=== PATIENT | male | born 1960 | race Caucasian/White ===

== ENCOUNTER 2017-10-17 04:08 | Emergency (ER) | payer MEDICAID, SELFPAY ==
[2017-10-17 04:08] VITALS: BP 165/80; PULSE 130; RESP 40; O2SAT 97; BMI 23.7
[2017-10-17 04:22] LABS: Basophils # 0.1 K/mm3 (0-0.2); Basophils % 0.7 % (0.1-2.0); Eosinophils # 0.9 K/mm3 (0.0-0.4); Eosinophils % 7.1 % (0.1-12.0); Hematocrit 50.9 % (42.0-52.0); Hemoglobin 17.2 g/dL (14.1-18.0); Lymphocytes # 4.5 K/mm3 (0.7-4.5); Lymphocytes % 35.5 K/mm3 (10-50); Mean Corpuscular HGB Conc 33.9 g/dL (31.8-35.4); Mean Corpuscular Hemoglobin 33.2 pg (27.0-31.2); Mean Corpuscular Volume 97.9 fl (80-94); Mean Platelet Volume 8.6 fl (7.4-10.4); Monocytes # 0.7 K/mm3 (0.1-1.0); Monocytes % 5.2 % (1.7-9.3); Neutrophils # 6.5 K/mm3 (1.8-7.8); Neutrophils % 51.4 % (37.0-80.0); Platelet Count 292 K/mm3 (142-424); White Blood Count 12.7 K/mm3 (4.8-10.8)
--- NOTE | 2017-10-17 04:24 | XR_ITS ---
XR chest portable HISTORY: ITS.REASON: shortness of breath and chest pain ORDERING PHYSICIAN: Peter Clark MD PATIENT AGE: 56 years COMPARISON: None available FINDINGS: The cardiomediastinal silhouette and pulmonary vascularity are within normal limits. The lungs are clear without infiltrates, suspicious nodules, or pleural effusions. Calcified granuloma left lung base No acute bony abnormalities. IMPRESSION: No acute finding, old granulomatous disease
[2017-10-17 04:44] LABS: Alanine Aminotransferase 56 U/L (12-78); Albumin Level 4.2 gm/dL (3.4-5.0); Albumin/Globulin Ratio 1.2 (1.1-1.8); Alkaline Phosphatase 106 U/L (46-116); Anion Gap 17.9 mEq/L (5-15); Aspartate Amino Transferase 37 U/L (15-37); Bilirubin,Total 0.5 mg/dL (0.2-1.0); Blood Urea Nitrogen 14 mg/dL (7-18); Calcium 9.6 mg/dL (8.5-10.1); Carbon Dioxide 28 mmol/L (21.0-32.0); Chloride 103 mmol/L (98-107); Creatinine Clearance Estimated 94 mL/min (0-300); Creatinine,Serum 1.05 mg/dL (0.70-1.30); Estimated Glomerular Filt Rate 73 ml/min (>60); GFR (African American) 89 ML/MIN (>60); Globulin 3.4 gm/dl (1.3-3.2); Glucose 117 mg/dL (74-106); Potassium 3.9 mmoL/L (3.5-5.1); Sodium 145 mmol/L (136-145); Total Protein,Serum 7.6 gm/dL (6.4-8.2)
[2017-10-17 04:48] VITALS: BP 147/90; PULSE 89; RESP 18; TEMP 36.6; O2SAT 99
[2017-10-17 04:50] LABS: CKMB Relative Index 0.4 U/L (0-4.0); Creatine Kinase 160 U/L (39-308); Creatine Kinase MB 0.7 mg/ml (0.0-3.6); Troponin I < 0.02 ng/ml (0.00-0.06)
[2017-10-17 04:56] LABS: Ethyl Alcohol 0 mg/dL (0-99)
[2017-10-17 05:14] LABS: Microscopic, Urine URINE MICROSCOPIC (MICROSCOPIC)
[2017-10-17 05:15] LABS: Appearance,Urine CLEAR (Clear); Bilirubin,Urine Negative (Negative); Blood, Urine Negative (Negative); Color,Urine YELLOW (Yellow); Glucose,Urine (UA) Negative (Negative); Ketones,Urine Negative (Negative); Leukocyte Esterase,Urine Negative (Negative); Nitrate,Urine Negative (Negative); PH,Urine 6.5 (5.0-8.5); Protein,Urine Negative (Negative); Specific Gravity, Urine <= 1.005 (1.005-1.030); Urobilinogen,Urine 0.2 EU/dl (0.2)
[2017-10-17 05:24] LABS: Amphetamine/Metha Screen,Urine Negative ng/mL (<1000); Barbiturates Screen,Urine Negative ng/mL (<200); Benzodiazepines Screen,Urine Negative ng/mL (200); Cannabinoid Screen,Urine Negative ng/mL (<50); Cocaine Screen,Urine Negative ng/g (<300); Methadone Screen,Urine Negative ng/mL (<300); Opiate Screen,Urine Negative ng/mL (<300); Phencyclidine Screen,Urine Negative ng/mL (<25)
[2017-10-17 05:28] LABS: WBC,Urine Occasional #/hpf (0-3)
[2017-10-17 05:29] LABS: Bacteria,Urine Trace /lpf
--- NOTE | 2017-10-17 06:18 | HMH.EDSEIZ ---
ED Disposition Clinical Impression: Generalized seizure Disposition: Home, Self-Care Condition on Discharge: Good Instructions: DI for Seizure Disorder -- Adult Additional Instructions: call your pcp for follow up - Critical Care Critical Care Time: No Attestation: On 10/17/17, the high probability of a clinically significant, sudden or life threatening deterioration of the following system(s) required my full and direct attention, intervention and personal management. The time I documented below is in addition to time spent performing reported procedures but includes the following listed in this critical care notation. Medical Decision Making - Medical Records Medical records reviewed: Yes: I reviewed the patient's medical records. Vital Signs: 10/17/17 04:08 10/17/17 04:48 Temperature 97.9 F Temperature Source Oral Pulse Rate [Left Brachial] 130 H 89 Respiratory Rate 40 H 18 Blood Pressure [Right Arm] 165/80 147/90 Blood Pressure Mean [Right Arm] 108 109 Blood Pressure Source [Right Arm] Automatic Cuff Blood Pressure Position [Right Arm] Sitting 02 Sat by Pulse Oximetry 97 99 Oxygen Delivery Method Room Air Room Air - Lab Data Lab results reviewed: Yes: I reviewed the patient's lab results. Lab Results 10/17/17 04:20: WBC 12.7 H, RBC 5.20, Hgb 17.2, Hct 50.9, MCV 97.9 H, MCH 33.2 H, MCHC 33.9, RDW 12.0, Plt Count 292, MPV 8.6, Neut % (Auto) 51.4, Lymph % (Auto) 35.5, [place] % (Auto) 5.2, Eos % (Auto) 7.1, Baso % (Auto) 0.7, Neut # (Auto) 6.5, Lymph # (Auto) 4.5, [place] # (Auto) 0.7, Eos # (Auto) 0.9 H, Baso # (Auto) 0.1 10/17/17 04:20: Sodium 145, Potassium 3.9, Chloride 103, Carbon Dioxide 28, Anion Gap 17.9 H, BUN 14, Creatinine 1.05, Estimated Creat Clear 94, Estimated GFR 73, Est GFR ( Amer) 89, Glucose 117 H, Calcium 9.6, Total Bilirubin 0.5, AST 37, ALT 56, Alkaline Phosphatase 106, Total Protein 7.6, Albumin 4.2, Globulin 3.4 H, Albumin/Globulin Ratio 1.2, Plasma/Serum Alcohol 0 10/17/17 04:20: Total Creatine Kinase 160, CK-MB (CK-2) 0.7, CK-MB (CK-2) Rel Index 0.4, Troponin I < 0.02 10/17/17 04:47: Urine Color Yellow, Urine Appearance Clear, Urine pH 6.5, Ur Specific [place] <= 1.005, Urine Protein Negative, Urine Glucose (UA) Negative, Urine Ketones Negative, Urine Blood Negative, Urine Nitrate Negative, Urine Bilirubin Negative, Urine Urobilinogen 0.2, Ur Leukocyte Esterase Negative, Urine WBC Occasional, Urine Bacteria Trace 10/17/17 04:47: Urine Opiates Screen Negative, Ur Barbituates Screen Negative, Ur Phencyclidine Scrn Negative, Ur Amphetamines Screen Negative, U Methamphetamines Scrn Negative, U Benzodiazepines Scrn Negative, Urine Cocaine Screen Negative, U Marijuana (THC) Screen Negative Result diagrams: 10/17/17 04:20 10/17/17 04:20 Orders (Tests/Meds): ED MEDICATIONS Generic Name Dose Route Start Last Admin Trade Name Freq PRN Reason Stop Dose Admin Sodium Chloride 2 ml 10/17/17 06:02 Saline Flush 10ml Syringe IV 11/16/17 06:01 NEEDED PRN to Dilute Lorazepam inj Discontinued Medications Generic Name Dose Route Start Last Admin Trade Name Freq PRN Reason Stop Dose Admin Lorazepam 1 mg 10/17/17 04:16 10/17/17 04:20 Ativan 2mg/Ml Vial IV 10/17/17 04:17 1 mg ONCE ONE Administration Lorazepam 0.5 mg 10/17/17 06:02 Ativan 2mg/Ml Vial IV 10/17/17 06:03 ONCE ONE ORDERS Category Date Time Status EKG Request [ECG Request by /Enoch] Stat Y 10/17/17 04:23 Ordered - Radiology Data #1 Image(s): Chest Image Reviewed: Yes I reviewed the patient's radiology image Preliminary Findings: Normal/NAD - ECG Data Tracing #1 I reviewed this ECG and interpreted as documented below: Normal Sinus Rhythm: Yes Ischemic changes: non-specific ST-T wave changes - Bhavik Inquiry Pt receiving controlled substance: No Seizures HPI - General Chief Complaint: Seizure Stated Complaint: seizure Time See
[2017-10-17 06:21] VITALS: BP 133/83; PULSE 81; RESP 18; O2SAT 96
--- NOTE | 2017-10-17 06:21 | ED_ITS ---
ED Disposition Clinical Impression: Generalized seizure Disposition: Home, Self-Care Condition on Discharge: Good Instructions: DI for Seizure Disorder -- Adult Additional Instructions: call your pcp for follow up - Critical Care Critical Care Time: No Attestation: On 10/17/17, the high probability of a clinically significant, sudden or life threatening deterioration of the following system(s) required my full and direct attention, intervention and personal management. The time I documented below is in addition to time spent performing reported procedures but includes the following listed in this critical care notation. Medical Decision Making - Medical Records Medical records reviewed: Yes: I reviewed the patient's medical records. Vital Signs: 10/17/17 04:08 10/17/17 04:48 Temperature 97.9 F Temperature Source Oral Pulse Rate [Left Brachial] 130 H 89 Respiratory Rate 40 H 18 Blood Pressure [Right Arm] 165/80 147/90 Blood Pressure Mean [Right Arm] 108 109 Blood Pressure Source [Right Arm] Automatic Cuff Blood Pressure Position [Right Arm] Sitting 02 Sat by Pulse Oximetry 97 99 Oxygen Delivery Method Room Air Room Air - Lab Data Lab results reviewed: Yes: I reviewed the patient's lab results. Lab Results 10/17/17 04:20: WBC 12.7 H, RBC 5.20, Hgb 17.2, Hct 50.9, MCV 97.9 H, MCH 33.2 H , MCHC 33.9, RDW 12.0, Plt Count 292, MPV 8.6, Neut % (Auto) 51.4, Lymph % (Auto ) 35.5, [place] % (Auto) 5.2, Eos % (Auto) 7.1, Baso % (Auto) 0.7, Neut # (Auto) 6.5, Lymph # (Auto) 4.5, [place] # (Auto) 0.7, Eos # (Auto) 0.9 H, Baso # (Auto) 0.1 10/17/17 04:20: Sodium 145, Potassium 3.9, Chloride 103, Carbon Dioxide 28, Anion Gap 17.9 H, BUN 14, Creatinine 1.05, Estimated Creat Clear 94, Estimated GFR 73, Est GFR ( Amer) 89, Glucose 117 H, Calcium 9.6, Total Bilirubin 0.5, AST 37, ALT 56, Alkaline Phosphatase 106, Total Protein 7.6, Albumin 4.2, Globulin 3.4 H, Albumin/Globulin Ratio 1.2, Plasma/Serum Alcohol 0 10/17/17 04:20: Total Creatine Kinase 160, CK-MB (CK-2) 0.7, CK-MB (CK-2) Rel Index 0.4, Troponin I < 0.02 10/17/17 04:47: Urine Color Yellow, Urine Appearance Clear, Urine pH 6.5, Ur Specific [place] <= 1.005, Urine Protein Negative, Urine Glucose (UA) Negative, Urine Ketones Negative, Urine Blood Negative, Urine Nitrate Negative, Urine Bilirubin Negative, Urine Urobilinogen 0.2, Ur Leukocyte Esterase Negative, Urine WBC Occasional, Urine Bacteria Trace 10/17/17 04:47: Urine Opiates Screen Negative, Ur Barbituates Screen Negative, Ur Phencyclidine Scrn Negative, Ur Amphetamines Screen Negative, U Methamphetamines Scrn Negative, U Benzodiazepines Scrn Negative, Urine Cocaine Screen Negative, U Marijuana (THC) Screen Negative Result diagrams: 10/17/17 04:20 10/17/17 04:20 Orders (Tests/Meds): ED MEDICATIONS Generic Name Dose Route Start Last Admin Trade Name Freq PRN Reason Stop Dose Admin Sodium Chloride 2 ml 10/17/17 06:02 Saline Flush 10ml Syringe IV 11/16/17 06:01 NEEDED PRN to Dilute Lorazepam inj Discontinued Medications Generic Name Dose Route Start Last Admin Trade Name Freq PRN Reason Stop Dose Admin Lorazepam 1 mg 10/17/17 04:16 10/17/17 04:20 Ativan 2mg/Ml Vial IV 10/17/17 04:17 1 mg ONCE ONE Administration Lorazepam 0.5 mg 10/17/17 06:02 Ativan 2mg/Ml Vial IV 10/17/17 06:
[2017-10-17 06:41] VITALS: BP 133/83; PULSE 81; RESP 18; TEMP 36.7; O2SAT 96
== END 2017-10-17 06:41 | disposition home or self-care (01) ==
PROVIDERS: Emergency Provider Emergency Medicine
DX: R56.9 Unspecified convulsions (principal); Z88.0 Allergy status to penicillin; Z88.6 Allergy status to analgesic agent
CPT/HCPCS: 71045; 80053; 80305; 81001; 82550; 82553; 84484; 85025; 93005; 93041; 96374; 96376; 99283

== ENCOUNTER 2017-11-12 10:14 | Emergency (ER) | payer MEDICAID, SELFPAY ==
[2017-11-12 10:15] VITALS: BP 126/88; PULSE 89; RESP 18; TEMP 36.6; O2SAT 98; BMI 17.1
--- NOTE | 2017-11-12 10:28 | CT_ITS ---
CT head/brain wo con HISTORY: ITS.REASON: SEIZURES ORDERING PHYSICIAN: Graham Castaneda MD PATIENT AGE: 56 years COMPARISON: None TECHNIQUE: Study was performed by helical technique is a patient was unable to lie still. FINDINGS: There is mild generalized motion artifact. No midline shift or mass effect evident. No acute intracranial hemorrhage. There is partial opacification of the ethmoid sinuses. IMPRESSION: Motion artifact, no definite acute intracranial findings
--- NOTE | 2017-11-12 10:51 | HMH.EDGENADL ---
ED Disposition Clinical Impression: Central nervous system disorder Disposition: Home, Self-Care Condition on Discharge: Good Additional Instructions: Follow with your neurologist, Dr. Cazares, as soon as possible, for evaluation and refills on your current medications. Referrals: Mehdi Arellano [Referring] - Time of Disposition: 10:52 - Critical Care Critical Care Time: No Attestation: On 11/12/17, the high probability of a clinically significant, sudden or life threatening deterioration of the following system(s) required my full and direct attention, intervention and personal management. The time I documented below is in addition to time spent performing reported procedures but includes the following listed in this critical care notation. Medical Decision Making - Medical Records Medical records reviewed: Yes: I reviewed the patient's medical records. Vital Signs: 11/12/17 10:15 11/12/17 11:04 Temperature 97.8 F 97.8 F Temperature Source Oral Oral Pulse Rate 80 Pulse Rate [Right Brachial] 89 Respiratory Rate 18 18 Blood Pressure 121/80 Blood Pressure [Right Arm] 126/88 Blood Pressure Mean [Right Arm] 100 Blood Pressure Source Automatic Cuff Blood Pressure Source [Right Arm] Automatic Cuff Blood Pressure Position Sitting Blood Pressure Position [Right Arm] Supine 02 Sat by Pulse Oximetry 98 Oxygen Delivery Method Room Air Room Air Orders (Tests/Meds): ED MEDICATIONS Discontinued Medications Generic Name Dose Route Start Last Admin Trade Name Freq PRN Reason Stop Dose Admin Lorazepam 2 mg 11/12/17 10:51 Ativan 1mg Tablet PO 11/12/17 10:52 ONCE ONE - CT Data CT Scan: Head (Without IV contrast) Time Received: 10:[address] Reviewed: Yes: I have reviewed the patient's CT results Preliminary Findings: Normal/NAD - Bhavik Inquiry Pt receiving controlled substance: No - Reevaluation(s) Time: 10:45 Reevaluation #1: Upon reevaluation patient appears medically stable, no acute distress. Advised patient that I will be unable to dispense any controlled substances to him and he will need to see his neurologist for this specific purpose. General Adult HPI - General Chief complaint: Seizure Stated complaint: thinks he had a seizure Mode of Arrival: EMS Limitations: No Limitations Description of Symptoms (Recalled from ER Triage Doc. 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 Advised that he was diagnosed with a [employer] disorder , and he takes Klonopin prescribed by Dr. Mcdonough for such disorder. He underwent extensive testing, which all returned negative. Today's episode was manifested by fasciculations of his upper and lower extremities, patient denies passing out, biting his tongue, being incontinent, or postictally confused. Onset (ago): minute(s) (30) Severity: mild - Related Data Home Medications Medication Instructions Recorded Confirmed clonazePAM [Klonopin 0.5mg tablet] 0.5 mg PO DAILY 10/17/17 11/12/17 Allergies Allergy/AdvReac Type Severity Reaction Status Date / Time tetanus and diphtheria AdvReac Verified 11/12/17 10:20 toxoids [facility] History I have reviewed the patient's past medical history: Yes - Social History Educational Level: Completed High School Smoking Status: Current every day smoker Tobacco Type: cigarettes Alcohol Intake: never Alcohol Intake Frequency:: a few times a week Substance Use Type: prescription drug Last Used Substance: hours (ago) - Psychiatric History Expresses thoughts of harming self/others: None Suicide Plan Description: No Plan ROS Obtained: Yes All systems reviewed & no additional complaints, Yes Systems reviewed as appropriate & no additional complaints - Neurologic
[2017-11-12 11:04] VITALS: BP 121/80; PULSE 80; RESP 18; TEMP 36.6; O2SAT 99
== END 2017-11-12 11:03 | disposition home or self-care (01) ==
PROVIDERS: Emergency Provider Emergency Medicine
DX: G96.9 Disorder of central nervous system, unspecified (principal); R56.9 Unspecified convulsions; F17.210 Nicotine dependence, cigarettes, uncomplicated
CPT/HCPCS: 70450; 99282

== ENCOUNTER → 2018-03-11 10:16 | Outpatient (CLI) | payer MEDICAID, SELFPAY ==
[2018-03-11 12:13] LABS: T4 (Thyroxine) 12.5 ug/dl (4.7-13.3); Thyroid Stimulating Hormone 1.35 uIU/ml (0.358-3.740)
[2018-03-12 07:14] LABS: Ceruloplasmin 27.3 mg/dL (16.0-31.0)
[2018-03-12 09:03] LABS: Antistreptolysin O Ab 162.9 IU/mL (0.0-200.0); Triiodothyronine (T3) Total 148 ng/dL (71-180)
[2018-03-12 13:12] LABS: Anti-Jo-1 <0.2 AI (0.0-0.9); Anti-Smith Antibody <0.2 AI (0.0-0.9); Antichromatin Antibodies <0.2 AI (0.0-0.9); Antiscleroderma-70 Antibodies <0.2 AI (0.0-0.9); RNP Antibodies <0.2 AI (0.0-0.9); Sjogren's Anti-SS-A <0.2 AI (0.0-0.9); Sjogren's Anti-SS-B <0.2 AI (0.0-0.9)
[2018-03-13 12:24] LABS: Anti-Centromere B Antibodies <0.2 AI (0.0-0.9); Anti-DNA (DS) Ab Qn 2 IU/mL (0-9); Arsenic, Blood 4 ug/L (2-23); Lead, Blood 3 ug/dL (0-19); Mercury, Blood None Detected ug/L (0.0-14.9)
[2018-03-15 11:40] LABS: Vitamin B1 184.3 nmol/L (66.5-200.0)
== END ==
PROVIDERS: PCP Emergency Medicine; Visit Provider Specialist
DX: G40.909 Epilepsy, unspecified, not intractable, without status epilepticus (principal); G25.9 Extrapyramidal and movement disorder, unspecified; R56.9 Unspecified convulsions; F44.4 Conversion disorder with motor symptom or deficit
CPT/HCPCS: 36415; 82175; 82390; 83655; 83825; 84425; 84436; 84443; 84480; 86060; 86225; 86235

== ENCOUNTER → 2018-06-18 07:57 | Outpatient (CLI) | payer MEDICAID, SELFPAY ==
--- NOTE | 2018-06-18 07:58 | CT_ITS ---
EXAM: CT LUNG LOW DOSE WO CONTRAST COMPARISON: Portable CXR 10/17/2017 HISTORY: 1 pack per day for 46 years. = 46 pack-year . Currently smoking FINDINGS: No suspicious lung nodules.: Indeterminate or Suspicious Lung Nodules(Category3-4B): None Indeterminate/Non-actionable Nodules(Category2): None Benign nodules(Category1). Large 2.2 cm densely calcified peripheral nodule which extends to the pleura is seen at the posterior RLL axial slice 66. Sagittal 83.. This dense calcification most probable with a long-standing benign granuloma. Similar stable feature was seen on the October 2017 CXR. LUNG PARENCHYMA . The lungs appear clear with no active disease. Minimal linear scarring and fibrotic changes seen towards the posterior medial lung bases, medial posterior sulcus region bilaterally as well as anteriorly at the lingula. Minimal linear scarring at the medial aspect of the fissures bilaterally. . Only scant centrilobular emphysematous changes Airways disease: Borderline to perhaps scant airway thickening most suspect centrally and towards lower lobes... . Fibrosis: . Only scant if any fibrotic changes towards the posterior lower lobes. Negligible. Equivocal. No significant interstitial fibrosis overall Lymph Nodes: Mediastinum. 16 times nearly 10 mm benign-appearing node precarinal region. Other small less than 1 cm nodes at right paratracheal and AP window region. There are several dense calcified nodes at left hayley. The largest node measuring up to 13 mm hypodense 10 mm.. There is also note posterior to the base of the left hayley. These reflect granulomatous disease IMPRESSION: 1. 2.2 cm large benign calcified granuloma at the periphery of the left lower lobe. = Lung RADS Category: 1. 2. Associated benign calcified nodes left hayley reflecting granulomatous disease as well 3.. No suspicious lung lesions. 4. Minimal linear scarring towards lung bases. . Borderline out airway thickening Only scant early if any emphysematous changes RECOMMENDATIONS: 12 months LDCT follow-up ======== TECHNIQUE: The exam was performed on a GE Light Speed [address] scanner using 3.0 mGy CTDI. A low dose helical CT CHEST was performed on a multi-detector scanner. All CT scans at this facility use one or more dose reduction techniques, viz.: automated exposure control, ma/kV adjustment per patient size (including targeted exams where dose is matched to indication, i.e. head) or iterative reconstruction technique. The LDCT was performed in a facility that meets the criteria for the screening program. Data regarding this exam was submitted to ACR which is an approved registry. The order for this exam indicates that it came as a result of a lung cancer screening counseling shard decision-making visit that included all the elements required of such a visit including smoking cessation. The radiologist interpreting this exam meets the [facility] criteria for the LDCT lung cancer screening program. The exam is reported using the Lung-RADS classification scale and reported to the ACR registry. NOTE: This study was performed for the specific purposes of lung cancer screening and is not an alternative to diagnostic chest CT. RADIATION DOSE: CTDI vol(CT dose Index-volume) = 2.9 mGy DLP (Dose Length Product) = 126.11 mGy-cm
[2018-06-18 08:43] LABS: Basophils % 0.4 % (0.1-2.0); Eosinophils # 0.4 K/mm3 (0.0-0.4); Eosinophils % 4.8 % (0.1-12.0); Hematocrit 50.7 % (42.0-52.0); Hemoglobin 16.6 g/dL (14.1-18.0); Mean Corpuscular HGB Conc 32.7 g/dL (31.8-35.4); Mean Corpuscular Hemoglobin 31.7 pg (27.0-31.2); Mean Corpuscular Volume 96.8 fl (80-94); Mean Platelet Volume 7.9 fl (7.4-10.4); Monocytes # 0.3 K/mm3 (0.1-1.0); Monocytes % 3.6 % (1.7-9.3); Neutrophils # 5.1 K/mm3 (1.8-7.8); Neutrophils % 65.2 % (37.0-80.0); Platelet Count 287 K/mm3 (142-424); Red Blood Count 5.23 M/mm3 (4.60-6.20); Red Cell Distribution Width 12.5 % (11.5-17.5); White Blood Count 7.8 K/mm3 (4.8-10.8)
== END ==
PROVIDERS: PCP Emergency Medicine; Visit Provider Internal Medicine Medical Oncology
DX: Z12.2 Encounter for screening for malignant neoplasm of respiratory organs (principal)
CPT/HCPCS: 36415; 85025

== ENCOUNTER → 2018-06-18 08:22 | Outpatient (CLI) | payer MEDICAID, SELFPAY | PROVIDERS: PCP Emergency Medicine; Visit Provider Internal Medicine Medical Oncology | DX: F17.200 Nicotine dependence, unspecified, uncomplicated (principal) | CPT/HCPCS: 36415; 85025 ==

== ENCOUNTER → 2019-05-06 09:46 | Outpatient (CLI) | payer MEDICAID, SELFPAY ==
[2019-05-06 10:19] LABS: Basophils % 0.5 % (0.1-2.0); Eosinophils # 0.4 K/mm3 (0.0-0.4); Eosinophils % 4.8 % (0.1-12.0); Hematocrit 50.1 % (42.0-52.0); Hemoglobin 17.1 g/dL (14.1-18.0); Lymphocytes # 2.2 K/mm3 (0.7-4.5); Lymphocytes % 29.9 % (10-50); Mean Corpuscular HGB Conc 34.1 g/dL (31.8-35.4); Mean Corpuscular Hemoglobin 33.4 pg (27.0-31.2); Mean Platelet Volume 7.9 fl (7.4-10.4); Monocytes # 0.3 K/mm3 (0.1-1.0); Monocytes % 4.6 % (1.7-9.3); Neutrophils # 4.4 K/mm3 (1.8-7.8); Neutrophils % 60.1 % (37.0-80.0); Platelet Count 294 K/mm3 (142-424); Red Blood Count 5.11 M/mm3 (4.60-6.20); Red Cell Distribution Width 12.9 % (11.5-17.5); White Blood Count 7.3 K/mm3 (4.8-10.8)
[2019-05-06 10:37] LABS: Hemoglobin A1C 5.6 % (0.0-7.0)
[2019-05-06 10:55] LABS: Alanine Aminotransferase 29 U/L (12-78); Albumin Level 4.2 gm/dL (3.4-5.0); Albumin/Globulin Ratio 1.2 (1.1-1.8); Alkaline Phosphatase 93 U/L (46-116); Anion Gap 13.5 mEq/L (5-15); Aspartate Amino Transferase 21 U/L (15-37); Bilirubin,Total 0.7 mg/dL (0.2-1.0); Blood Urea Nitrogen 9 mg/dL (7-18); Calcium 9.6 mg/dL (8.5-10.1); Carbon Dioxide 27 mmol/L (21.0-32.0); Chloride 100 mmol/L (98-107); Chol/HDL Ratio 3.5 (1-3.5); Cholesterol 202 mg/dL (140-200); Creatinine,Serum 0.96 mg/dL (0.70-1.30); Estimated Glomerular Filt Rate 81 ml/min (>60); GFR (African American) 98 ML/MIN (>60); Globulin 3.4 gm/dl (1.3-3.2); Glucose 113 mg/dL (74-106); HDL Cholesterol 57 mg/dL (27-67); LDL Cholesterol 129 mg/dL (0-130); Potassium 4.5 mmoL/L (3.5-5.1); Sodium 136 mmol/L (136-145); Thyroid Stimulating Hormone 1.32 uIU/ml (0.358-3.740); Total Protein,Serum 7.6 gm/dL (6.4-8.2); Triglycerides 78 mg/dL (30-200); VLDL Cholesterol 16 mg/dL (0-40)
== END ==
PROVIDERS: Visit Provider Psychiatry & Neurology Psychiatry
DX: F33.9 Major depressive disorder, recurrent, unspecified (principal)
CPT/HCPCS: 36415; 80053; 80061; 83036; 84443; 85025

== ENCOUNTER 2019-09-02 11:24 | Observation (INO) ==
--- NOTE | 2019-09-02 11:41 | Emergency Department Note ---
ED Disposition Clinical Impression: Alcohol intoxication Qualifiers: Complication of substance-induced condition: uncomplicated Qualified Code(s): F10.920 - Alcohol use, unspecified with intoxication, uncomplicated Scalp laceration Qualifiers: Encounter type: initial encounter Qualified Code(s): S01.01XA - Laceration without foreign body of scalp, initial encounter Disposition: Admitted as Observation Condition on Discharge: Fair Referrals: Provider,Referral, MD [Primary Care Provider] - - Critical Care Critical Care Time: No Attestation: On , the high probability of a clinically significant, sudden or life threatening deterioration of the following system(s) required my full and direct attention, intervention and personal management. The time I documented below is in addition to time spent performing reported procedures but includes the following listed in this critical care notation. Medical Decision Making - Bhavik Inquiry Pt receiving controlled substance: Yes Bhavik was queried for this patient: No Reason not queried -: Emergent pt cond-no time Risks and benefits of using a controlled substance: were not discussed with pt by me Vital Signs: 09/02/19 11:25 09/02/19 15:00 Temperature 98 F Temperature Source Oral Pulse Rate [Right] 125 H 94 H Respiratory Rate 18 20 Blood Pressure [Right Arm] 153/90 H 134/83 Blood Pressure Mean [Right Arm] 111 100 Blood Pressure Source [Right Arm] Automatic Cuff Blood Pressure Position [Right Arm] Supine 02 Sat by Pulse Oximetry 98 95 Oxygen Delivery Method Room Air Room Air - Lab Data Lab Results 09/02/19 11:30: WBC 9.7, RBC 4.76, Hgb 16.3, Hct 48.3, MCV 101.5 H, MCH 34.2 H, MCHC 33.7, RDW 13.3, Plt Count 316, MPV 8.4, Neut % (Auto) 54.4, Lymph % (Auto) 34.2, [place] % (Auto) 5.8, Eos % (Auto) 4.8, Baso % (Auto) 0.7, Neut # (Auto) 5.3, Lymph # (Auto) 3.3, [place] # (Auto) 0.6, Eos # (Auto) 0.5 H, Baso # (Auto) 0.1 09/02/19 11:30: Sodium 141, Potassium 3.5, Chloride 102, Carbon Dioxide 25, Anion Gap 17.5 H, BUN 11, Creatinine 0.86, Estimated Creat Clear 109, Estimated GFR 92, Est GFR ( Amer) 111, Glucose 102, Calcium 8.7, Total Bilirubin 0.4, AST 32, ALT 44, Alkaline Phosphatase 82, Total Protein 7.8, Albumin 4.2, Globulin 3.6 H, Albumin/Globulin Ratio 1.2, Plasma/Serum Alcohol 356 H* 09/02/19 11:30: PT 12.3 H, INR 1.19 H, APTT 25.7 Result diagrams: 09/02/19 11:30 09/02/19 11:30 Orders (Tests/Meds): ED MEDICATIONS Generic Name Dose Route Start Last Admin Trade Name Freq PRN Reason Stop Dose Admin Multivitamins 10 ml/ Thiamine 1,015 mls @ 150 mls/hr 09/02/19 14:15 09/02/19 15:29 HCl 100 mg/ Magnesium Sulfate IV 09/02/19 21:00 150 mls/hr 2 gm/ Lactated Ringer's .[id number] CATA Administration Sodium Chloride 10 ml 09/02/19 14:46 Sodium Chloride 0.9% 10ml Vial IV 10/02/19 14:45 NEEDED PRN to Dilute Lorazepam inj Discontinued Medications Generic Name Dose Route Start Last Admin Trade Name Freq PRN Reason Stop Dose Admin Diphenhydramine HCl 50 mg 09/02/19 11:35 09/02/19 11:39 Benadryl 50mg/1ml Vial IM 09/02/19 11:36 50 mg ONCE ONE Administration Folic Acid 1 mg 09/02/19 14:07 Folic Acid 1mg Tablet PO 09/02/19 14:08 ONCE ONE Haloperidol Lactate 5 mg 09/02/19 11:35 09/02/19 11:39 Haldol 5mg/Ml Vial IM 09/02/19 11:36 5 mg ONCE ONE Administration Lidocaine/Epinephrine 10 ml 09/02/19 14:30 Lidocaine 2% W/Epi 1:100,000 20ml Vial IJ 09/02/19 14:31 ONCE ONE Lorazepam 2 mg 09/02/19 11:35 09/02/19 11:39 Ativan 2mg/Ml Vial IM 09/02/19 11:36 2 mg ONCE ONE Administration Lorazepam 2 mg 09/02/19 14:46 09/02/19 14:49 Ativan 2mg/Ml Vial IV 09/02/19 14:47 2 mg ONCE ONE Administration ORDERS Category Date Time Status Drug Screen,Urine Stat Lab 09/02/19 11:31 Ordered Urinalysis and Microscopic Stat Lab 09/02/19 11:31 Ordered - Radiology Data #1 Image(s): Chest, Pelvis Image Reviewed: Yes I reviewed the patient's radiology image Pelvis: no fracture or dislocation seen. Chest x-ray: No infiltrate, pneumothorax, pleural effusion, or wide mediastinum. Calcified granuloma left base. - CT Data CT Scan: Head, C-Spine Time Received: 14:[address] Reviewed: Yes: I have viewed the radiologist's interpretation Findings Narrative: c-spine: FINDINGS: Bone density, alignment and vertebral body heights are normal. There is moderate loss of disc space height with small anterior and posterior spurs at C5-6 and C6-7. Posterior elements are intact with posterior benign soft tissue calcifications. There are some areas of mild uncovertebral joint hypertrophy causing only mild foraminal encroachment bilaterally at C5-6 and C6-7. There is no prevertebral soft tissue edema. There is a lucent appearing lesion at the caudal tip of the right mastoid area of the right temporal bone. Maximal diameter is 1.4 centimeters and the length of the lesion is 1.9 centimeters. There appears to be some associated peripheral internal calcific matrix. There is no associated peripheral cortical destruction. IMPRESSION: No acute fracture or subluxation. Multiple levels of degenerative disc disease with bilateral mild spondylosis at C5-6 and C6-7. Lesion as described at the caudal tip of the right mastoid area. The appearance is somewhat nonspecific and differential would include benign etiology such as enchondroma or mucocele. Dictated by: Hermes Caraballo 09/02/2019 14:50 Electronically signed by Hermes Caraballo in [place] 09/02/2019 14:50 head: FINDINGS: No midline shift, mass effect, intracranial hemorrhage, hydrocephalus, or extra-axial fluid collection is evident. There are no areas of abnormal attenuation. Sulci and cortical areas are normal. The calvarium has an unremarkable appearance. The caudal right mastoid lucent lesion has been described on the CT cervical spine report. No sinus air-fluid level. IMPRESSION: No acute intracranial finding Dictated by: Hermes Caraballo 09/02/2019 14:54 Electronically signed by Hermes Caraballo in [place] 09/02/2019 14:54 - Physician Consults Physician Consulted: Dr. Up Time: 15:30 Reason -: Admission Comment/Response: Agrees to admit the patient to the hospital. We discussed the patient's clinical information, including history, exam, laboratory and radiology results and ED course. Per hospital procedure, I will write temporary bridge inpatient orders on the patient. Specific orders requested by the admitting physician: Alcohol withdrawal protocol, IV fluids Medical Decision Narrative: Scalp examined after CT scans/sedation. 2 cm occipital scalp laceration into subcutaneous fat. No bony depression or step-off. No foreign bodies. 3:25 PM: Patient's brother would prefer patient be admitted if possible. General Adult HPI - General Chief complaint: Alcohol Stated complaint: alcohol intox. Time Seen by Provider: 09/02/19 11:30 Mode of Arrival: EMS Limitations: No Limitations Description of Symptoms (Recalled from ER Triage Doc. by RN): Pt fell on the side of the road and hit his head, pt has lac on the back of his head. Pt smells heavily of alcohol. Pt is irrate and combative with staff. - History of Present Illness HPI narrative: Brought in by ambulance. Reportedly found on the side of the street with a cut on his head. Suspected to be intoxicated with alcohol. His brother is here, but cannot provide much additional information. He says that he is on some antipsychotics. He does not know diagnosis or why he is on antipsychotics. He does not think that the patient has any other significant medical issues. He states he sees a doctor for his Tourette's syndrome in [place]. States patient is a daily drinker, approximately 6 beers. The last time he was this drunk was about 3 months ago. He does not think that the patient has significant withdrawal or DTs. - Related Data Home Medications Medication Instructions Recorded Confirmed hydroxyzine pamoate 25 mg capsule 25 mg PO TID 30 Days #90 cap 05/20/18 06/20/18 lamotrigine 100 mg tablet 50 mg PO BID 30 Days #30 tab 05/20/18 06/20/18 risperidone 1 mg tablet 1 mg PO DAILY 30 Days #30 tab 05/20/18 06/20/18 sertraline 100 mg tablet 150 mg PO DAILY 30 Days #45 tab 05/20/18 06/20/18 Allergies Allergy/AdvReac Type Severity Reaction Status Date / Time tetanus and diphtheria AdvReac Verified 06/20/18 11:09 toxoids [facility] History - Hepatitis A Screen Drug use history?: No High risk sexual behaviors?: No History of sexually transmitted infection?: No Currently employed?: No Childcare worker?: No Do you have indoor plumbing?: Yes Do you have electricity?: Yes Attestation statement:: This patient has been screened for Hepatitis A risk factors. I have reviewed the patient's past medical history: Yes Medical History: Reports:: Anxiety, Hepatitis, Seizures Other Medical History: Reports: Liver Disease Other Surgeries: Yes: Other Amputation: No Fractures: Yes (fx rt hand,oral surgery) Comment: hand, oral - Social History Smoking Status: Unknown if ever smoked Tobacco Type: cigarettes #Yrs smoked (if former smoker): 45 Alcohol Intake: current Alcohol Intake Frequency:: a few times a week Substance Use Type: denies use Occupational Status: unemployed Household Members: family - Psychiatric History Pschychiatric History:: Reports:: Anxiety Family Hx:: Adopted ROS Obtained: Yes unobtainable due to mental status Physical Exam - General General appearance: alert, other (Uncooperative, agitated) - Head Head exam: other (The patient has a long hair and there is some blood on the hair, but at this time is not cooperating with examination) - Eye Eye exam: Present: normal appearance - Neck Neck exam: Present: normal inspection, trachea midline - Chest Chest inspection: Present: normal inspection, symmetric chest wall rise - Respiratory Respiratory exam: Present: other (Will not allow auscultation) - Cardiovascular Cardiovascular exam: Present: tachycardia - Abdominal Exam Abdominal exam: Present: other (Will not allow palpation) - Extremities Exam Extremities exam: Present: normal inspection - Neurological Exam Neurological exam: Present: alert - Psychiatric Psychiatric exam: Present: agitated - Skin Skin exam: Present: warm, dry Procedures - Miscellaneous Procedure Procedure Performed: Laceration Repair Performed by: CAROLIN WALTON Laceration location: Scalp Laceration length: 2 cm Local anesthetic: 2 percent lidocaine with epinephrine Wound prep: Sterilly scrubbed with Hibiclens and irrigated with copious normal saline. Draping: Sterile in usual manner Patient sedated: no Debridement: minimal Exploration: No foreign body or deep structure injury found Layers Closed: Skin Suture material: Skin yimi Number of yimi: 3 Repair complexity: Simple Patient tolerance: Patient tolerated the procedure well with no immediate complications
[2019-09-02 11:49] LABS: Basophils # 0.1 K/mm3 (0-0.2); Basophils % 0.7 % (0.1-2.0); Eosinophils # 0.5 K/mm3 (0.0-0.4); Eosinophils % 4.8 % (0.1-12.0); Hematocrit 48.3 % (42.0-52.0); Hemoglobin 16.3 g/dL (14.1-18.0); Lymphocytes # 3.3 K/mm3 (0.7-4.5); Lymphocytes % 34.2 % (10-50); Mean Corpuscular HGB Conc 33.7 g/dL (31.8-35.4); Mean Corpuscular Volume 101.5 fl (80-94); Mean Platelet Volume 8.4 fl (7.4-10.4); Monocytes # 0.6 K/mm3 (0.1-1.0); Monocytes % 5.8 % (1.7-9.3); Neutrophils # 5.3 K/mm3 (1.8-7.8); Neutrophils % 54.4 % (37.0-80.0); Platelet Count 316 K/mm3 (142-424); Red Blood Count 4.76 M/mm3 (4.60-6.20); Red Cell Distribution Width 13.3 % (11.5-17.5); White Blood Count 9.7 K/mm3 (4.8-10.8)
[2019-09-02 11:53] LABS: Activated Partial Thrombo Time 25.7 seconds (23.6-34.0); INR 1.19 (0.9-1.1); Prothrombin Time 12.3 seconds (9.4-11.8)
[2019-09-02 12:01] LABS: Albumin Level 4.2 gm/dL (3.4-5.0); Albumin/Globulin Ratio 1.2 (1.1-1.8); Anion Gap 17.5 mEq/L (5-15); Bilirubin,Total 0.4 mg/dL (0.2-1.0); Calcium 8.7 mg/dL (8.5-10.1); Globulin 3.6 gm/dl (1.3-3.2); Total Protein,Serum 7.8 gm/dL (6.4-8.2)
--- NOTE | 2019-09-02 17:45 | History & Physical Report ---
*Admission Date: 09/02/19 *Chief complaint: Acute alcohol intoxication *History of present illness: 58-year-old white male, who sees a doctor in [place], [place] for his chronic psychiatric conditions but who is also a daily user of alcohol was found by the side of the road unconscious with bleeding from the scalp wound. Was brought to the emergency department where he was found to have a 2 cm scalp laceration that was repaired by the ER physician, and work-up for trauma was undertaken with a CT scan of head and a CT scan of C-spine which were unrevealing for trauma or fracture. Laboratory studies showed that other than significantly elevated alcohol level patient's labs were not significantly abnormal. Patient was somnolent, sleeping and was admitted to hospital for observation, nutritional support with IV fluids and rally pack's and reinstitution of medications when he awakes. Patient apparently lives with his brother, ER history is from his brother. Brother reports he drinks daily. Has never had withdrawal symptoms. He sees a doctor in [place] who gives some psychiatric medications. Brother is unsure about his exact diagnoses or other medical problems. [place] History I have reviewed the patient's past medical history: Yes Medical History: Reports:: Anxiety, Hepatitis, Seizures *Have you ever received a pneumonia vaccine?: No *Have you received a flu vaccine this season?: No Other Medical History: Reports: Liver Disease Comment:: Unknown psychiatric disorder Other Surgeries: Yes: Other Amputation: No Fractures: Yes (fx rt hand,oral surgery) - *Social History Smoking Status: Unknown if ever smoked Tobacco Type: cigarettes #Yrs smoked (if former smoker): 45 Alcohol Intake: current Alcohol Intake Frequency:: a few times a week Substance Use Type: denies use *Occupational Status:: other Household Members: family *Travel in the last 8 weeks: None - Psychiatric History Pschychiatric History:: Reports:: Anxiety Family Hx:: Adopted Review of Systems - Review of Systems Review of systems:: unable to obtain Meds Home Medications Medication Instructions Recorded Confirmed Type hydroxyzine pamoate 25 mg capsule 25 mg PO TID 30 Days #90 cap 05/20/18 09/02/19 History lamotrigine 100 mg tablet 50 mg PO BID 30 Days #30 tab 05/20/18 09/02/19 History sertraline 100 mg tablet 150 mg PO BID 30 Days #45 tab 05/20/18 09/02/19 History Quetiapine Fumarate 50 mg PO TID 09/02/19 09/02/19 History Allergies Allergy/AdvReac Type Severity Reaction Status Date / Time tetanus and diphtheria AdvReac Verified 06/20/18 11:09 toxoids Exam Vital signs and Labs for Last 24 Hours: Temp Pulse Resp BP Pulse Ox 97.6 F 81 20 100/62 L 95 09/02/19 16:31 09/02/19 16:31 09/02/19 16:31 09/02/19 16:31 09/02/19 16:31 Laboratory Results - last 24 hr 09/02/19 11:30: WBC 9.7, RBC 4.76, Hgb 16.3, Hct 48.3, MCV 101.5 H, MCH 34.2 H, MCHC 33.7, RDW 13.3, Plt Count 316, MPV 8.4, Neut % (Auto) 54.4, Lymph % (Auto) 34.2, [place] % (Auto) 5.8, Eos % (Auto) 4.8, Baso % (Auto) 0.7, Neut # (Auto) 5.3, Lymph # (Auto) 3.3, [place] # (Auto) 0.6, Eos # (Auto) 0.5 H, Baso # (Auto) 0.1 09/02/19 11:30: Sodium 141, Potassium 3.5, Chloride 102, Carbon Dioxide 25, Anion Gap 17.5 H, BUN 11, Creatinine 0.86, Estimated Creat Clear 109, Estimated GFR 92, Est GFR ( Amer) 111, Glucose 102, Calcium 8.7, Total Bilirubin 0.4, AST 32, ALT 44, Alkaline Phosphatase 82, Total Protein 7.8, Albumin 4.2, Globulin 3.6 H, Albumin/Globulin Ratio 1.2, Plasma/Serum Alcohol 356 H* 09/02/19 11:30: PT 12.3 H, INR 1.19 H, APTT 25.7 I & O for Last 24 hours: Intake & Output 08/31/19 09/01/19 09/02/19 09/03/19 11:59 11:59 11:59 11:59 Output Total 1300 / 1300 Balance -1300 / -1300 Weight 180 lb 389 lb 15.964 oz Narrative: Patient is sleeping, when attempted to be aroused he rolls over and refuses to wake up. No evidence of scleral icterus. Lungs have some smoker's rhonchi but symmetric air entry. Trachea is not deviated. Heart rate regular. Abdomen is soft and scaphoid. No edema in extremities. Scattered bruising. Scalp laceration repaired very nicely. Complete neurologic examination and ENT exam impossible because of patient's obtunded status. Assessment and Plan (1) Alcohol intoxication Current visit: Yes Status: Acute Qualifiers: Complication of substance-induced condition: uncomplicated Qualified Code(s): F10.920 - Alcohol use, unspecified with intoxication, uncomplicated Category: Medical Code(s): F10.929 - Alcohol use, unspecified with intoxication, unspecified Admit to hospital. IV fluids, PRN benzodiazepines. Alcohol withdrawal protocol. Restart psych medicines when awake. (2) Scalp laceration Current visit: Yes Status: Acute Qualifiers: Encounter type: initial encounter Qualified Code(s): S01.01XA - Laceration without foreign body of scalp, initial encounter Category: Medical Code(s): S01.01XA - Laceration without foreign body of scal p, initial encounter
--- NOTE | 2019-09-03 00:39 | Pharmacy Consult Notes ---
[facility] Pharmacy VTE Monitoring - Patient Demographics Admission date: 09/02/19 Report Date: 09/03/19 Time: 00:38 Allergies/Adverse Reactions: Patient Allergies tetanus and diphtheria toxoids Adverse Reaction (Verified 06/20/18 11:09) Height: 1.83 m Weight: 176.9 kg Patient Problems: Current Active Problems Alcohol intoxication (Acute) Scalp laceration (Acute) - VTE Risk Labs: VTE Related Lab Results Hgb 16.3 g/dL (14.1-18.0) 09/02/19 11:30 Hct 48.3 % (42.0-52.0) 09/02/19 11:30 Plt Count 316 K/mm3 (142-424) 09/02/19 11:30 PT 12.3 seconds (9.4-11.8) H 09/02/19 11:30 INR 1.19 (0.9-1.1) H 09/02/19 11:30 APTT 25.7 seconds (23.6-34.0) 09/02/19 11:30 BUN 11 mg/dL (7-18) 09/02/19 11:30 Creatinine 0.86 mg/dL (0.70-1.30) 09/02/19 11:30 Estimated Creat Clear 109 mL/min (50-200) 09/02/19 11:30 Clinical Trial Participant: No - Prophylaxis VTE Prophylaxis Ordered?: Yes Types of VTE Prophylaxis: TEDS Knee High
--- NOTE | 2019-09-03 07:54 | Discharge Summary ---
General - General Admission date:: 09/02/19 Discharge date: 09/03/19 HPI HPI: 58-year-old white male, who sees a doctor in [place], [place] for his chronic psychiatric conditions but who is also a daily user of alcohol was found by the side of the road unconscious with bleeding from the scalp wound. Was brought to the emergency department where he was found to have a 2 cm scalp laceration that was repaired by the ER physician, and work-up for trauma was undertaken with a CT scan of head and a CT scan of C-spine which were unrevealing for trauma or fracture. Laboratory studies showed that other than significantly elevated alcohol level patient's labs were not significantly abnormal. Patient was somnolent, sleeping and was admitted to hospital for observation, nutritional support with IV fluids and rally pack's and reinstitution of medications when he awakes. Patient apparently lives with his brother, ER history is from his brother. Brother reports he drinks daily. Has never had withdrawal symptoms. He sees a doctor in [place] who gives some psychiatric medications. Brother is unsure about his exact diagnoses or other medical problems. Hospital Course Hospital Course: Patient slept through most of the night, awoke early this morning, was back to his normal state of mind and health, and wished to be discharged home. Exam was unchanged from admission exam except his level of alertness was normal. Patient we discharged home in the care of his brother. He is instructed to follow-up with his regular physician and continue his home medications-he states he has his home medications. He is not interested in any kind of alcohol counseling or rehabilitation. Objective Vital signs: Temp Pulse Resp BP Pulse Ox 98.4 F 89 20 149/82 H 93 L 09/03/19 04:00 09/03/19 04:00 09/03/19 04:00 09/03/19 04:00 09/03/19 04:00 Narrative: Patient demanded to leave before my rounds. Please see exam notes from yesterday. Results Labs on day of discharge: Labs from last 24 hours 09/02/19 09/02/19 09/02/19 11:30 11:30 11:30 WBC 9.7 RBC 4.76 Hgb 16.3 Hct 48.3 MCV 101.5 H MCH 34.2 H MCHC 33.7 RDW 13.3 Plt Count 316 MPV 8.4 Neut % (Auto) 54.4 Lymph % (Auto) 34.2 [place] % (Auto) 5.8 Eos % (Auto) 4.8 Baso % (Auto) 0.7 Neut # (Auto) 5.3 Lymph # (Auto) 3.3 [place] # (Auto) 0.6 Eos # (Auto) 0.5 H Baso # (Auto) 0.1 PT 12.3 H INR 1.19 H APTT 25.7 Sodium 141 Potassium 3.5 Chloride 102 Carbon Dioxide 25 Anion Gap 17.5 H BUN 11 Creatinine 0.86 Estimated Creat Clear 109 Estimated GFR 92 Est GFR ( Amer) 111 Glucose 102 Calcium 8.7 Total Bilirubin 0.4 AST 32 ALT 44 Alkaline Phosphatase 82 Total Protein 7.8 Albumin 4.2 Globulin 3.6 H Albumin/Globulin Ratio 1.2 Plasma/Serum Alcohol 356 H* DS: Diagnosis - Discharge Diagnosis (1) Alcohol intoxication Status: Resolved (2) Scalp laceration Status: Acute Discharge Plan - Patient Discharge Instructions ACTIVITY: Continue current activity DIET: continue same diet Patient Instructions: DI for Laceration Repair of the Scalp, DI for Alcohol Abuse, DI for Drug or Alcohol Withdrawal - Follow up Plan Disposition: Home, Self-Assisted Medications: Home Medications Medication Instructions Recorded Confirmed Type hydroxyzine pamoate 25 mg capsule 25 mg PO TID 30 Days #90 cap 05/20/18 09/02/19 History lamotrigine 100 mg tablet 100 mg PO BID 30 Days #30 tab 05/20/18 09/03/19 History sertraline 100 mg tablet 200 mg PO DAILY 30 Days #45 tab 05/20/18 09/03/19 History Quetiapine Fumarate 50 mg PO TID 09/02/19 09/02/19 History Prescriptions/Medication Reconciliation: Continued sertraline 100 mg tablet 200 mg PO DAILY 30 Days #45 tab lamotrigine 100 mg tablet 100 mg PO BID 30 Days #30 tab hydroxyzine pamoate 25 mg capsule 25 mg PO TID 30 Days #90 cap Quetiapine Fumarate 50 mg PO TID - Problem Reconciliation Problems Reviewed?: Yes
== END 2019-09-03 06:35 | disposition home or self-care (01) ==
LOC: 2ND 11:24 → ER 11:24 → 2ND 16:01
PROVIDERS: ADMIT Internal Medicine Adolescent Medicine; ATTEND Internal Medicine Adolescent Medicine
CPT/HCPCS: 70450; 71010; 71045; 72125; 72170; 80053; 85025; 85610; 85730; 96365; 96372; 96375; 99285; G0378